=== PATIENT | female | born 1960 | race Caucasian/White ===

== ENCOUNTER → 2016-06-19 | Outpatient (CLI) | payer BC ==
--- NOTE | ~2016-06-19 | ECH ---
Transthoracic Echocardiography Report (TTE) Demographics Patient Name DAMIEN PERERA Date of Study 06/19/2016 Patient Number [id number] Visit Number [id number] Date of 1960 Room Number Accession Number [id number] Gender Female Age 55 year(s) Referring Paris Clark Cp Bleacher Operator Enedina Adames [facility] Physician Physician Interpreting Chrystal Kwon Membership Administrator Physician Supervising Ordering Physician Paris Clark MD/P Nurse Stress Garment Sewer Hand Conclusions Summary Technically adequate exam. The estimated left ventricular ejection fraction is 65%. Normal wall motion. Mild left ventricular hypertrophy. Diastolic assessment reveals Grade I diastolic dysfunction. The left atrium is mildly dilated by LA volume index measurement. No other significant valvular abnormalities. The aortic root appears mildly dilated. The maximum diameter measures 3.45 cm at the sinus of valsalva. Procedure Type of Study TTE procedure:Echo Complete SF. Procedure Date Date: 06/19/2016 Start: 08:42 AM Technical Quality: Adequate visualization Indications:Chest discomfort. Appropriate Use Criteria: 9 Height: 67 inches Weight: 214 pounds BSA: 2.08 m Rhythm: Within normal limits HR: 64 bpm BP: 155/75 mmHg M-Mode/2D Measurements LV Diastolic Dimension: 4.32 cm LV Systolic Dimension: 3.27 cm LV Septum Diastolic: 1.18 cm LV PW Diastolic: 0.93 cm AO Root Dimension: 2.66 cm Cardiac Output: 3.3 l/min LA Dimension: 3.78 cm Cardiac Index: 1.59 l/min*m RV Diastolic Dimension: 3.15 cm LA volume index: 38 ml/m LVOT: 1.86 cm LVOT VTI: 18.99 cm RV Base: 4.3 cm LV Stroke volume: 51.57 ml RV Mid: 2.5 cm LV Stroke volume index: 24.79 ml/m RV Length: 6.2 cm TAPSE: 2.3 cm TDI-S': 12 cm/s Doppler Measurements AV Mean Gradient: 5.61 mmHg MV Peak E-Wave: 0.83 m/s LVOT Peak Velocity: 0.86 m/s MV Peak A-Wave: 0.92 m/s AV Area (Continuity):1.52 cm MV P1/2t: 70.1 msec TR Velocity:1.78 m/s TR Gradient:12.74 mmHg MV Deceleration Time: 227.9 msec Estimated RAP:3 mmHg MV Area (PHT): 3.14 cm Estimated RVSP: 16 mmHg PV Peak Velocity: 1.01 m/s PV Peak Gradient: 4.12 mmHg Estimated PASP: 15.74 mmHg RA Area: 17.72 cm Findings Left Ventricle The left ventricle is normal in size . Mild left ventricular hypertrophy. Diastolic assessment reveals Grade I diastolic dysfunction. Right Ventricle Normal right ventricle structure and function. Left Atrium The left atrium is mildly dilated by LA volume index measurement. Right Atrium Normal right atrial size. Mitral Valve Normal mitral valve structure and function. Aortic Valve Normal aortic valve structure and function. Tricuspid Valve Normal tricuspid valve structure and function. Trivial tricuspid regurgitation by color Doppler. Pulmonic Valve Normal pulmonic valve structure and function. Mild pulmonic valve regurgitation by color Doppler. Pericardial Effusion No evidence of pericardial effusion. Miscellaneous The aortic root appears mildly dilated. The maximum diameter measures 3.45 cm at the sinus of valsalva. Pleural Effusion No evidence of pleural effusion. Contractility Score LV regional wall motion:(0-Non visualized 1-Normal 2-Hypokinesis 3-Akinesis 4-Dyskinesis 5-Aneurysm) Signature
== END | disposition home or self-care (01) ==
LOC: CARD 06-13 16:08
DX: R07.9 Chest pain, unspecified (principal); I51.89 Other ill-defined heart diseases